=== PATIENT | female | born 1975 | race Caucasian/White ===

== ENCOUNTER 2020-11-14 06:40 | Inpatient (IN) ==
[2020-11-14] MEDS ORDERED: BETADINE SOLN ONE (06:53)
[2020-11-14] MEDS ORDERED: ProvayBLUE 0.5% ONE (06:53)
[2020-11-14] MEDS ORDERED: LR 1000 ML IV 1,000 ML IV ONE ×2 (06:55→07:11)
[2020-11-14] MEDS ORDERED: FLAGYL IV PREMIX 500 MG BAG 500 MG/100 ML BAG IV ONE (06:56)
[2020-11-14] MEDS ORDERED: FENTANYL INJ 250 mcg ONE (07:10)
[2020-11-14] MEDS ORDERED: BRIDION ONE (07:10)
[2020-11-14] MEDS ORDERED: DILAUDID INJ ONE (07:10)
[2020-11-14] MEDS ORDERED: ZEMURON 50 MG VIAL ONE ×2 (07:11→07:40)
[2020-11-14] MEDS ORDERED: PEPCID 20 MG IV PREMIX* 20 MG/50 ML BAG IV ONE (07:11)
[2020-11-14] MEDS ORDERED: OFIRMEV IV 1000 MG VIAL 1,000 MG/100 ML VIAL IV ONE (07:11)
[2020-11-14 07:19] VITALS: BMI 29.9
[2020-11-14] MEDS ORDERED: DECADRON INJ ONE (07:39)
[2020-11-14 07:40] LABS: SERUM PREGNANCY TEST, QUAL NEGATIVE <10 mIU/mL
[2020-11-14] MEDS ORDERED: REFLEX: PROVENTIL NEB & PulmiCORT NEB~ ONE (07:40)
[2020-11-14] MEDS ORDERED: KETALAR ONE (07:40)
[2020-11-14] MEDS ORDERED: REGLAN INJ 10 MG VIAL ONE (07:40)
[2020-11-14] MEDS ORDERED: XYLOCAINE 2 % (PLAIN) ONE (07:40)
[2020-11-14] MEDS ORDERED: TORADOL 30 MG VIAL ONE (07:40)
[2020-11-14] MEDS ORDERED: VERSED ONE (07:40)
[2020-11-14] MEDS ORDERED: EPHEDRINE SULFATE INJ ONE (07:40)
[2020-11-14] MEDS ORDERED: LACRI-LUBE S.O.P. ONE (07:40)
[2020-11-14] MEDS ORDERED: ROBINUL ONE (07:40)
[2020-11-14] MEDS ORDERED: DIPRIVAN VIAL ONE (07:40)
[2020-11-14] MEDS ORDERED: ZOFRAN INJ 4 MG VIAL ONE (07:40)
[2020-11-14] MEDS ORDERED: ULTANE GAS IN ONE (07:40)
[2020-11-14] MEDS ORDERED: GENTAMICIN IV NR (08:00)
[2020-11-14] MEDS ORDERED: NS IV NR (08:00)
[2020-11-14] MEDS ORDERED: PHENERGAN INJ 25 MG IM PRN ×2 (09:57→10:13)
[2020-11-14] MEDS ORDERED: REGLAN INJ 10 MG VIAL IVP PRN (09:57)
[2020-11-14] MEDS ORDERED: ZOFRAN INJ 4 MG VIAL IVP PRN (09:57)
[2020-11-14] MEDS ORDERED: BENADRYL INJ 50 MG VIAL IVP PRN (09:57)
[2020-11-14] MEDS: DILAUDID INJ IVP PRN ×4 (09:59→10:19)
[2020-11-14] MEDS: D5 LR 1000 ML 1,000 ML IV SCH ×2 (10:49→19:35)
[2020-11-14] MEDS: TORADOL 30 MG VIAL IVP SCH ×3 (11:06→22:29)
[2020-11-14] MEDS: PERCOCET TAB 5/325 MG PO PRN ×2 (14:11→19:33)
[2020-11-14] MEDS: ZOFRAN INJ 4 MG VIAL IVP PRN ×2 (14:31→22:29)
[2020-11-15 04:52] LABS: HEMATOCRIT 32.2 % (36.0-47.0); HEMOGLOBIN 10.8 g/dL (12.0-16.0)
[2020-11-15] MEDS: TORADOL 30 MG VIAL IVP SCH (04:57)
[2020-11-15] MEDS: D5 LR 1000 ML 1,000 ML IV SCH ×3 (04:57→16:27)
--- NOTE | 2020-11-15 08:18 | NOTE.PGOBP ---
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 Tolerating regular diet. No N/V. Ambulating well. Suarez draining well. Pain well controlled by toradol/percocet. Objective Data Result Diagrams: 11/15/20 04:15 Objective Data: CV= RRR no MRG Lungs=CTA Bilaterally Abd=(+) BS, soft, ND, appropriately tender near incision. Bandage removed. Incision clean/dry/intact, no erythema, no bleeding, no discharge. D ermabond/Stitches intact. Ext= No edema, NT, No Cords. Graduated Compression Stockings/Sequential Compression Devices Bilaterally. Plan (1) H/O hysterectomy with oophorectomy: Plan: s/-p MELODIE/BSO lysis of adhesions a complicated and long surgery but the pt is doing well and will likely go home this afternoon. (2) Pelvic peritoneal adhesions, female:
[2020-11-15] MEDS ORDERED: TORADOL 30 MG VIAL IM PRN (10:02)
[2020-11-15] MEDS ORDERED: TORADOL 30 MG VIAL IVP PRN (10:02)
[2020-11-15 16:28] VITALS: BP 142/61
== END 2020-11-15 17:20 | disposition home or self-care (01) | DRG 743 ==
LOC: MED/SURG 06:40
PROVIDERS: ADMIT Obstetrics & Gynecology; ATTEND Obstetrics & Gynecology
DX: R10.2 Pelvic and perineal pain; N80.0 Endometriosis of uterus; N73.6 Female pelvic peritoneal adhesions (postinfective)